=== PATIENT | female | born 2000 | race Caucasian/White ===

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

== ENCOUNTER 2022-07-17 12:27 | Outpatient (CLI) | payer OTHER | END 2022-07-17 12:28 | disposition home or self-care (01) | LOC: CSHULT 12:27 | PROVIDERS: ATTEND Family Medicine | DX: Z34.82 Encounter for supervision of other normal pregnancy, second trimester (principal); Z3A.20 20 weeks gestation of pregnancy | CPT/HCPCS: 76805 ==

== ENCOUNTER 2022-08-20 12:19 | Day surgery (SDC) | payer OTHER ==
[2022-08-20] MEDS ORDERED: hydrALAZINE 20 MG/ML VIAL SLOW IVP PRN (13:21)
[2022-08-20 14:05] VITALS: BMI 31.1
== END 2022-08-20 14:24 | disposition home or self-care (01) ==
LOC: CSHLD/OP 12:19
PROVIDERS: ATTEND Family Medicine
DX: O26.852 Spotting complicating pregnancy, second trimester (principal); Z3A.25 25 weeks gestation of pregnancy
CPT/HCPCS: 76815; 99283

== ENCOUNTER 2022-11-21 12:10 | Inpatient (IN) | payer OTHER ==
[~2022-11-21 12:10] MED LIST: Bupivacaine/Epinephrine 0.25% 30 ML VIAL ONE
[2022-11-21] MEDS ORDERED: Diphenoxylate HCl/Atropine Tablet PO PRN (12:14)
[2022-11-21] MEDS ORDERED: Ondansetron PF 4 MG/2 ML Vial IVP PRN ×2 (12:14→21:21)
[2022-11-21] MEDS ORDERED: Carboprost 250 MCG/ML AMP IM PRN (12:14)
[2022-11-21] MEDS ORDERED: HYDROcodone/Acetaminophen 5/325 mg Tablet PO PRN ×2 (12:14→21:21)
[2022-11-21] MEDS ORDERED: Acetaminophen 500 MG TAB PO PRN (12:14)
[2022-11-21] MEDS ORDERED: Promethazine HCl 25 MG/ML VIAL IM PRN (12:14)
[2022-11-21] MEDS ORDERED: Methylergonovine 0.2 MG/ML VIAL IM PRN (12:14)
[2022-11-21] MEDS ORDERED: Misoprostol 200 MCG TAB PR PRN (12:14)
[2022-11-21] MEDS ORDERED: Butorphanol Tartrate 1 MG/ML VIAL SLOW IVP PRN (12:14)
[2022-11-21] MEDS ORDERED: hydrALAZINE 20 MG/ML VIAL SLOW IVP PRN ×2 (12:14→21:21)
[2022-11-21] MEDS ORDERED: Tranexamic Acid 1,000 MG in Sodium Chloride 0.9% 250 ML 250 ML IVPB PRN (12:14)
[2022-11-21] MEDS ORDERED: Lidocaine 1% (PF) 30 ML VIAL SC PRN (12:14)
[2022-11-21] MEDS ORDERED: Ibuprofen 800 MG TAB PO PRN (12:14)
[2022-11-21] MEDS ORDERED: NS w/ Oxytocin 30 units 500 ML IV SCH ×2 (12:15)
[2022-11-21] MEDS ORDERED: Lactated Ringer's 1,000 ML IV SCH (12:15)
[2022-11-21] MEDS ORDERED: Tranexamic Acid 1,000 MG/10 ML VIAL IVP PRN (12:19)
[2022-11-21 13:53] LABS: Hemoglobin 10.7 g/dL (12.0-15.5); Mean Corpuscular HGB CONC 33.5 g/dL (32.0-36.0); Mean Corpuscular Hemoglobin 28.3 pg (27.0-33.0); Mean Corpuscular Volume 84.4 fl (81.6-98.3); Mean Platelet Volume 10.8 fl (7.4-10.4); Platelet Count 161 10x3/uL (150-450); RBC Distribution Width 14.1 % (11.5-14.5); Red Blood Cell (RBC) Count 3.78 10x6/uL (3.90-5.03); White Blood Cell (WBC) Count 6.7 10x3/uL (3.5-10.5)
[2022-11-21 14:28] LABS: Syphilis Antibody Nonreactive (Nonreactive); Syphilis Antibody Index 0.04 S/CO (<1.00 Non-Reactive)
[2022-11-21 14:29] LABS: HBSAg Index 0.15 S/CO (0-0.99); Hep B Surf Ag Non-Reactive S/CO (NonReactive)
[2022-11-21 14:49] VITALS: BMI 36.2
[2022-11-21 15:21] LABS: SARS-CoV-2 NAA Rapid Test Not Detected (NotDetected)
[2022-11-21] MEDS ORDERED: Fentanyl 2 mcg/Bup 0.1% Cadd 100 ML ONE (15:43)
[2022-11-21] MEDS ORDERED: diphenhydrAMINE 25 MG CAP PO PRN (21:21)
[2022-11-21] MEDS ORDERED: Bisacodyl 10 MG SUPP PR PRN (21:21)
[2022-11-21] MEDS ORDERED: Benzocaine-Menthol 82.5 ML CAN TOP PRN (21:21)
[2022-11-21] MEDS ORDERED: Lanolin Ointment 7 GM TUBE TOP PRN (21:21)
[2022-11-21] MEDS ORDERED: Milk Of Magnesia 30 ML UDCUP PO PRN (21:21)
[2022-11-21] MEDS ORDERED: Boostrix 0.5 ML (Tdap) VIAL (>/=7 yrs of age) IM ONE (21:21)
[2022-11-21] MEDS: Docusate 100 MG CAP PO SCH (21:45)
[2022-11-21] MEDS: Ibuprofen 800 MG TAB PO SCH (21:45)
[2022-11-22] MEDS: Ibuprofen 800 MG TAB PO SCH ×3 (05:02→21:11)
[2022-11-22] MEDS: Ferrous Sulfate 325 MG TAB PO SCH ×2 (08:26→18:18)
[2022-11-22] MEDS: Docusate 100 MG CAP PO SCH ×2 (08:27→21:10)
[2022-11-22] MEDS: Prenatal Vitamin 1 TAB PO SCH (08:27)
[2022-11-23] MEDS: Ibuprofen 800 MG TAB PO SCH (05:35)
[2022-11-23 07:58] VITALS: BP 122/60; TEMP 98.3
[2022-11-23] MEDS: Docusate 100 MG CAP PO SCH (08:10)
[2022-11-23] MEDS: Prenatal Vitamin 1 TAB PO SCH (08:10)
[2022-11-23] MEDS: Ferrous Sulfate 325 MG TAB PO SCH (08:15)
== END 2022-11-23 12:00 | disposition home or self-care (01) | DRG 807 ==
LOC: CSHLD 12:10 → CSHPP 21:10
PROVIDERS: ADMIT Family Medicine; ATTEND Family Medicine
PROC: 10E0XZZ Delivery of Products of Conception, External Approach (ICD-10-PCS; principal; 2022-11-21)
PROC: 0UQMXZZ Repair Vulva, External Approach (ICD-10-PCS; 2022-11-21)
PROC: 0HB9XZZ Excision of Perineum Skin, External Approach (ICD-10-PCS; 2022-11-21)
PROC: 10907ZC Drainage of Amniotic Fluid, Therapeutic from Products of Conception, Via Natural or Artificial Opening (ICD-10-PCS; 2022-11-21)
DX: O63.9 Long labor, unspecified (principal); Z37.0 Single live birth; O99.892 Other specified diseases and conditions complicating childbirth; Z20.822 Contact with and (suspected) exposure to COVID-19; O71.82 Other specified trauma to perineum and vulva; N90.89 Other specified noninflammatory disorders of vulva and perineum; Z79.899 Other long term (current) drug therapy; Z3A.39 39 weeks gestation of pregnancy
CPT/HCPCS: 36415; 51702; 85027; 86780; 86850; 86900; 86901; 87340; J2001; J2590; U0002